=== PATIENT | male | born 1970 | race American Indian/Alaskan Native ===

== ENCOUNTER 2017-07-09 09:12 | Outpatient (CLI) | payer OTHER ==
--- NOTE | 2017-07-09 14:59 | Cat Scan Report ---
CT CHEST, ABDOMEN AND PELVIS WITH CONTRAST: 07/09/17 09:12:00 CLINICAL: Colon cancer followup. COMPARISON: 02/22/13 TECHNIQUE: Volumetric acquisition and 1.25 millimeter scan reconstructions after the uneventful intravenous injection of 100 cc of Omnipaque 300. Consent was obtained prior to the administration of the contrast. Oral contrast was also given. FINDINGS: Chest: The lungs are clear. No pulmonary nodule or mass. Normal aorta, heart and pulmonary arteries. Normal esophagus and trachea. No mediastinal or hilar lymphadenopathy.No axillary or supraclavicular lymphadenopathy. A left Oocfye-j-Dnan tip is in the distal SVC. Abdomen: Normal liver, bile ducts and gallbladder. Normal stomach, duodenum, pancreas and spleen. Normal adrenal glands and kidneys. The renal collecting systems and ureters are nondilated. Normal aorta and inferior vena cava. No mass or lymphadenopathy.No ascites.The small bowel is normal. Normal ascending, transverse and descending colon with a normal anastomosis of the descending colon. Normal appendix. Pelvis: Normal urinary bladder, prostate and rectum.Normal sigmoid colon. No pelvic mass or lymphadenopathy. No free fluid.. Bone windows demonstrate no suspicious bone lesion. IMPRESSION:1. Normal chest. 2. Normal abdomen and pelvis status post left partial colectomy. 3. No evidence of disease recurrence or metastasis.
== END 2017-07-09 09:13 | disposition home or self-care (01) ==
LOC: SPVIMAG 09:12
PROVIDERS: ATTEND Internal Medicine Hematology & Oncology
DX: C18.7 Malignant neoplasm of sigmoid colon (principal); Z90.49 Acquired absence of other specified parts of digestive tract
CPT/HCPCS: 71260; 74177; Q9967

== ENCOUNTER 2020-08-13 10:13 | Outpatient (CLI) | payer OTHER ==
--- NOTE | 2020-08-13 14:44 | Nuclear Medicine Report ---
Whole body bone scan INDICATION: Colon cancer with now right hip pain. TECHNIQUE: A total of 25.3 millicuries of technetium 99 MDP was injected IV per protocol. Whole-body images were obtained. COMPARISON: CT abdomen pelvis performed 08/17/2018 FINDINGS: Diffuse radiotracer uptake identified throughout the axial and appendicular skeleton with r enal excretion. Degenerative changes are present within the shoulders and both feet. IMPRESSION: No abnormal uptake identified to suggest metastatic disease. No abnormal uptake identifie d in the region of the right hip. Signer Name: Yan Mauricio MD Signed: 08/13/2020 2:40 PM Workstation Name: [id number]
== END 2020-08-13 10:14 | disposition home or self-care (01) ==
LOC: NM 10:13
PROVIDERS: ATTEND Internal Medicine Hematology & Oncology
DX: C18.7 Malignant neoplasm of sigmoid colon (principal)
CPT/HCPCS: 78306; A9503

== ENCOUNTER 2021-02-14 07:00 | Outpatient (CLI) | payer OTHER ==
[2021-02-14 08:08] LABS: Blood Urea Nitrogen 12 mg/dL (9-20)
--- NOTE | 2021-02-14 09:36 | Cat Scan Report ---
CT CHEST, ABDOMEN, AND PELVIS WITH CONTRAST INDICATION / CLINICAL INFORMATION: COLON CANCER OMNI 300 100 ML. TECHNIQUE: Axial CT images were obtained through the chest, abdomen, and pelvis after 100 cc of Omnip aque [address] scans at this location are performed using CT dose reduction for ALARA b y means of automated exposure control. COMPARISON: 08/17/2018 FINDINGS: HEART: No significant abnormality. CORONARY ARTERY CALCIFICATION: None. THORACIC AORTA: No significant abnormality. MEDIASTINUM / CINDI: No significant abnormality. PLEURA: No pleural effusion. No pneumothorax. LUNGS: No acute air space or interstitial disease. ADDITIONAL CHEST FINDINGS: None. LIVER: No significant abnormality. GALLBLADDER: No significant abnormality. BILE DUCTS: No significant abnormality. PANCREAS: No significant abnormality. SPLEEN: No significant abnormality. ADRENALS: No significant abnormality. RIGHT KIDNEY / URETER: No significant abnormality. LEFT KIDNEY / URETER: No significant abnormality. STOMACH and SMALL BOWEL: There is swirling of the mesentery which is unchanged from prior exam. There is no obstruction or complication associated with this. No acute abnormality. COLON: Postoperative changes are noted in the left colon. No acute abnormality APPENDIX: No significant abnormality. PERITONEUM: No free fluid. No free air. No fluid collection. LYMPH NODES: No significant adenopathy. AORTA / ARTERIES: No significant abnormality. IVC / VEINS: No significant abnormality. URINARY BLADDER: No significant abnormality. REPRODUCTIVE ORGANS: No significant abnormality. ADDITIONAL FINDINGS: None. SKELETAL SYSTEM: No acute abnormality. IMPRESSION: 1. No recurrent or metastatic disease is identified. Changes of partial left colectomy are again note d. Signer Name: Marc Guzmán MD Signed: 02/14/2021 9:32 AM Workstation Name: [id number]
== END 2021-02-14 07:01 | disposition home or self-care (01) ==
LOC: CT 07:00
PROVIDERS: ATTEND Internal Medicine Hematology & Oncology
DX: C18.7 Malignant neoplasm of sigmoid colon (principal)
CPT/HCPCS: 36415; 71260; 74177; 82565; 84520; Q9967